=== PATIENT | female | born 1975 | race Hispanic/Latino ===

== ENCOUNTER 2019-11-14 17:18 | Emergency (ER) | payer OTHER ==
[~2019-11-14] VITALS: Ht 154.9 cm; Wt 76.7 kg
[2019-11-14 17:56] LABS: BASOPHILS # (AUTO) 0.1 (0.0-0.1); BASOPHILS % 0.9 % (0.0-1.0); EOSINOPHILS # (AUTO) 0.1 (0.0-0.4); EOSINOPHILS % 1.3 % (0.0-6.0); LYMPHOCYTES # (AUTO) 2.2 (1.0-3.2); LYMPHOCYTES % 28.9 % (18.0-39.1); MEAN CORPUSCULAR HEMOGLOBIN 14.4 pg (28-32); MEAN CORPUSCULAR VOLUME 57.6 fL (81-99); MONOCYTES # (AUTO) 0.6 (0.2-0.8); MONOCYTES % 7.9 % (4.4-11.3); NEUTROPHILS # (AUTO) 4.6 (2.1-6.9); NEUTROPHILS % 60.7 % (38.7-80.0); PLATELET COUNT 403 x10e3/uL (140-360); RED BLOOD COUNT 4.79 x10e6/uL (3.6-5.1); RED CELL DISTRIBUTION WIDTH 22.4 % (11.7-14.4)
[2019-11-14 17:58] LABS: HEMOGLOBIN 6.9 g/dL (12.0-16.0)
[2019-11-14 17:59] LABS: HEMATOCRIT 27.6 % (34.2-44.1)
[2019-11-14 18:03] LABS: INR 0.84; PROTHROMBIN TIME 11.9 seconds (11.9-14.5)
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
[2019-11-14 18:11] LABS: ALANINE AMINOTRANSFERASE 32 IU/L (0-55); ALBUMIN 3.9 g/dL (3.5-5.0); ALKALINE PHOSPHATASE 109 IU/L (40-150); ANION GAP 13.7 mmol/L (8-16); BLOOD UREA NITROGEN 9 mg/dL (7-26); BUN/CREATININE RATIO 13 (6-25); CALCIUM 9.4 mg/dL (8.4-10.2); CARBON DIOXIDE 24 mmol/L (22-29); CHLORIDE 107 mmol/L (98-107); CREATINE KINASE 52 IU/L (29-168); CREATININE, SERUM 0.71 mg/dL (0.57-1.11); EST GLOMERULAR FILTRATION RATE > 60 ML/MIN (60-); GLUCOSE 98 mg/dL (74-118); POTASSIUM 3.7 mmol/L (3.5-5.1); SODIUM 141 mmol/L (136-145)
--- NOTE | 2019-11-14 18:15 | Emergency Department Note ---
History of Present Illnes History of Present Illness Chief Complaint: General Medicine Complaints History of Present Illness This is a 43 year old female Chief Complaint Comment went to [facility] for check up and blood work and told hgb was 6.9 and told to come to er for further eval denies cp states she feels a little sob but thinks it due to mask presents as pale denies all other complaints at this time states hx of anemia last blood transfusion 2013 at [facility] . Historian: Patient Arrival Mode: Car Transportation Security Screener Required: No Onset (how long ago): week(s) Location: Blood Quality: Anemia Radiation: Reports non-radiation Severity: mild Onset quality: gradual Duration (how long): week(s) Timing of current episode: unable to specify Progression: worsening Chronicity: recurrent Context: Denies recent illness Relieving factors: none Exacerbating factors: none Associated symptoms: Reports shortness of breath Treatments prior to arrival: none Past Medical/Family History Physician Review I have reviewed the patient's past medical and family history. Any updates have been documented here. Past Medical History Recent Fever: No Clinical Suspicion of Infectio: No New/Unexplained Change in Ment: No Past Medical History: Anemia Past Surgical History: Tubal Ligation Social History Physically hurt or threatened: No Review of Systems Review of Systems Constitutional: Reports no symptoms EENTM: Reports no symptoms Cardiovascular: Reports no symptoms Respiratory: Reports no symptoms, Reports dyspnea on exertion Gastrointestinal: Reports no symptoms Genitourinary: Reports no symptoms Musculoskeletal: Reports no symptoms Integumentary: Reports no symptoms Neurological: Reports no symptoms Psychological: Reports no symptoms Endocrine: Reports no symptoms Hematological/Lymphatic: Reports no symptoms Physical Exam Related Data Allergies: Coded Allergies: No Known Allergies (Unverified , 11/14/19) Triage Vital Signs Vital Signs Date Time Temp Pulse Resp B/P (MAP) Pulse Ox O2 Delivery O2 Flow Rate FiO2 11/14/19 17:21 98.6 97 18 128/74 100 Room Air Vital signs reviewed: Yes Physical Exam CONSTITUTIONAL Constitutional: Present well-developed, Present well-nourished HENT HENT: Present normocephalic, Present atraumatic, Present oropharynx clear/moist, Present nose normal HENT L/R: Present left ext ear normal, Present right ext ear normal EYES Eyes: Reports PERRL, Reports conjunctivae normal NECK Neck: Present ROM normal PULMONARY Pulmonary: Present effort normal, Present breath sounds normal CARDIOVASCULAR Cardiovascular: Present regular rhythm, Present heart sounds normal, Present capillary refill normal, Present normal rate GASTROINTESTINAL Abdominal: Present soft, Present nontender, Present bowel sounds normal GENITOURINARY Genitourinary: Present exam deferred SKIN Skin: Present warm, Present dry MUSCULOSKELETAL Musculoskeletal: Present ROM normal NEUROLOGICAL Neurological: Present alert, Present oriented x 3, Present no gross motor or sensory deficits PSYCHOLOGICAL Psychological: Present mood/affect normal, Present judgement normal Results Laboratory Result Diagram: 11/14/19 1727 Laboratory Laboratory Tests Test 11/14/19 17:27 White Blood Count 7.59 x10e3/uL (4.8-10.8) Red Blood Count 4.79 x10e6/uL (3.6-5.1) Hemoglobin 6.9 g/dL (12.0-16.0) Hematocrit 27.6 % (34.2-44.1) Mean Corpuscular Volume 57.6 fL (81-99) Mean Corpuscular Hemoglobin 14.4 pg (28-32) Mean Corpuscular Hemoglobin Concent 25.0 g/dL (31-35) Red Cell Distribution Width 22.4 % (11.7-14.4) Platelet Count 403 x10e3/uL (140-360) Neutrophils (%) (Auto) 60.7 % (38.7-80.0) Lymphocytes (%) (Auto) 28.9 % (18.0-39.1) Monocytes (%) (Auto) 7.9 % (4.4-11.3) Eosinophils (%) (Auto) 1.3 % (0.0-6.0) Basophils (%) (Auto) 0.9 % (0.0-1.0) Neutrophils # (Auto) 4.6 (2.1-6.9) Lymphocytes # (Auto) 2.2 (1.0-3.2) Monocytes # (Auto) 0.6 (0.2-0.8) Eosinophils # (Auto) 0.1 (0.0-0.4) Basophils # (Auto) 0.1 (0.0-0.1) Absolute Immature Granulocyte (auto 0.02 x10e3/uL (0-0.1) Assessment & Plan Medical Decision Making MDM 43-year-old female with past medical history of anemia who presents to the emergency department for anemia. Patient had routine blood testing which showed a hemoglobin of 6.9. She was last transfused 2013. She states her anemia is likely secondary to recurrent heavy menstrual bleeding. She is not currently bleeding. She endorses some mild shortness of breath with exertion but otherwise feels her baseline health. Her symptoms have been gradual in onset patient shows an overall well-appearing female in no acute distress. Vital signs stable and within normal limits. Hemoglobin 6.9 and we'll transfuse one unit packed red blood cells. Instructed to follow-up with her primary care doctor and/or her DIE BARBER. Return precautions were given and patient is appropriate for discharge. Reassessment Reassessment time: 18:31 Reassessment Well appearing, NAD Assessment & Plan Final Impression: (1) Anemia Depart Disposition: HOME, SELF-CARE Last Vital Signs Date Time Temp Pulse Resp B/P (MAP) Pulse Ox O2 Delivery O2 Flow Rate FiO2 11/14/19 17:21 98.6 97 18 128/74 100 Room Air DAVID MENDOZA MD Nov 14, 2019 18:15
[2019-11-14] MEDS ORDERED: SODIUM CHLORIDE 0.9% 250ML 250 ML IV ONE (18:30)
--- NOTE | 2019-11-14 18:50 | Diagnostic Imaging Report ---
EXAMINATION: CHEST SINGLE (PORTABLE) INDICATION: Shortness of breath. COMPARISON: None FINDINGS: TUBES and LINES: None. LUNGS: Normal lung volumes. Lungs are clear. No consolidations. Bibasilar atelectasis. PLEURA: No pleural effusion or pneumothorax. HEART AND MEDIASTINUM: The cardiomediastinal silhouette is unremarkable. BONES AND SOFT TISSUES: No acute osseous lesion. Soft tissues are unremarkable. UPPER ABDOMEN: No free air under the diaphragm. IMPRESSION: No acute thoracic radiographic abnormality. Bibasilar atelectasis. Signed by: rTue Fuller MD on 11/14/2019 6:47 PM
[2019-11-14 19:20] LABS: LYMPHOCYTES % (MANUAL) 28 % (19-48); METAMYELOCYTES % (MANUAL) 1 % (0-0); MONOCYTES % (MANUAL) 4 % (3.4-9.0); MYELOCYTES % (MANUAL) 1 % (0-0); NEUTROPHILS % (MANUAL) 65 % (40-74); PROMYELOCYTES % (MANUAL) 1 % (0-0)
[2019-11-14 19:23] LABS: HYPOCHROMASIA MODE
[2019-11-14 19:24] LABS: MICROCYTOSIS MODERATE
[2019-11-14 19:26] LABS: TARGET CELLS FEW
[2019-11-14 19:29] LABS: ELLIPTOCYTE, RBC SLIGHT; STOMATOCYTES SLIGHT
[2019-11-14 19:30] LABS: PLATELET ESTIMATE ADEQUATE; PLATELET MORPHOLOGY COMMENT NORMAL; RBC MORPHOLOGY COMMENT NORMAL
--- NOTE | 2019-11-14 20:52 | NUR ---
Blood transfusion started pt awake and alert, no SOB on RA. VSS
[2019-11-14 22:53] LABS: HEMOGLOBIN 7.7 g/dL (12.0-16.0)
[2019-11-14 23:19] VITALS: BP 130/83
== END 2019-11-14 23:27 | disposition home or self-care (01) ==
LOC: ER 17:42
DX: D64.9 Anemia, unspecified (principal); R06.02 Shortness of breath
CPT/HCPCS: 36415; 71045; 80053; 82550; 82553; 83880; 84484; 85014; 85018; 85025; 85610; 85730; 86850; 86900; 86920; 99284; J7050; P9016; U0002; 93005

== ENCOUNTER 2021-03-21 08:49 | Outpatient (RCR) | payer OTHER | END 2021-04-01 | LOC: PT 08:49 | PROVIDERS: ATTEND Specialist | DX: M17.11 Unilateral primary osteoarthritis, right knee (principal) ==